=== PATIENT | female | born 1970 | race Two or more races ===

== ENCOUNTER 2021-12-30 08:08 | Outpatient (CLI) | payer BC, MEDICAID, SELFPAY ==
--- NOTE | 2021-12-30 08:16 | US_ITS ---
WS: [id number] THYROID ULTRASOUND HISTORY: LOCALIZED Swelling, mass, LUMP, NECK COMPARISON: None available. Right lobe: 1.3 cm x 2.1 cm x 4.6 cm (w x ap x l). Volume: 6.6 cm3. Normal size thyroid. Mildly heterogeneous gland. There are a few scattered nodules. Nodules throughou t the RIGHT thyroid are subcentimeter. Left lobe: 3.7 cm x 4.1 cm x 5.6 cm (w x ap x l). Volume: 44.5 cm3. Enlarged gland. The enlargement is due to a complex cyst in the mid to lower thyroid. This cyst conta ins septations with no increased vascularity. This large cyst measures 3.3 x 2.4 x 3.7 cm. No increas ed vascularity. This is probably a colloid cyst or hemorrhagic cyst. No solid mass. Isthmus: 0.5 cm. Small hypoechoic nodule measures 1.0 x 0.5 x 0.9 cm in the RIGHT isthmus. US/US thyroid 71323 IMPRESSION: 1. There is a large predominantly cystic mass with septation in the mid to low er LEFT thyroid. This is probably a colloid cyst or hemorrhagic cyst. 2. There are additional nodules within the RIGHT thyroid which are subcentimet er. None of these nodules at this time are concerning enough for further interv ention such as FNA.
== END 2021-12-30 08:09 | disposition home or self-care (01) ==
PROVIDERS: Visit Provider Family Medicine
DX: R22.1 Localized swelling, mass and lump, neck (principal)
CPT/HCPCS: 76536